=== PATIENT | female | born 1980 | race Caucasian/White ===

== ENCOUNTER 2021-04-07 11:55 | Outpatient (CLI) | payer OTHER | END 2021-04-07 11:56 | disposition home or self-care (01) | LOC: CSHMAMMO 11:55 | PROVIDERS: ATTEND Obstetrics & Gynecology | DX: N63.10 Unspecified lump in the right breast, unspecified quadrant (principal) | CPT/HCPCS: 77066; G0279 ==

== ENCOUNTER 2022-04-19 14:00 | Outpatient (CLI) | payer OTHER | END 2022-04-19 14:01 | disposition home or self-care (01) | LOC: CSHMAMMO 14:00 | PROVIDERS: ATTEND Obstetrics & Gynecology | DX: Z12.31 Encounter for screening mammogram for malignant neoplasm of breast (principal) | CPT/HCPCS: 77063; 77067 ==

== ENCOUNTER 2022-08-17 06:01 | Day surgery (SDC) | payer OTHER ==
[2022-08-14 14:18] VITALS: BMI 26.6
[2022-08-17] MEDS ORDERED: Lidocaine 1% PF 5 ML VIAL ONE (07:15)
[2022-08-17] MEDS ORDERED: PROPOFOL 40 ML ONE (07:15)
[2022-08-17] MEDS ORDERED: PROPOFOL 20 ML ONE (08:03)
== END 2022-08-17 09:01 | disposition home or self-care (01) ==
LOC: CSHSDC 06:01
PROVIDERS: ATTEND Internal Medicine Gastroenterology
PROC: 0DJD8ZZ Inspection of Lower Intestinal Tract, Via Natural or Artificial Opening Endoscopic (ICD-10-PCS; principal; 2022-08-17)
DX: K64.9 Unspecified hemorrhoids (principal); K63.5 Polyp of colon; K62.5 Hemorrhage of anus and rectum; K21.9 Gastro-esophageal reflux disease without esophagitis; E66.9 Obesity, unspecified; F41.9 Anxiety disorder, unspecified; Z68.26 Body mass index [BMI] 26.0-26.9, adult; Z79.899 Other long term (current) drug therapy; Z98.84 Bariatric surgery status
CPT/HCPCS: J2704

== ENCOUNTER 2023-04-24 11:03 | Outpatient (CLI) | payer OTHER | END 2023-04-24 11:04 | disposition home or self-care (01) | LOC: CSHMAMMO 11:03 | PROVIDERS: ATTEND Obstetrics & Gynecology | DX: Z12.31 Encounter for screening mammogram for malignant neoplasm of breast (principal) | CPT/HCPCS: 77063; 77067 ==

== ENCOUNTER 2024-06-19 11:25 | Outpatient (CLI) | payer BC | END 2024-06-19 11:26 | disposition home or self-care (01) | LOC: CSHMAMMO 11:25 | PROVIDERS: ATTEND Obstetrics & Gynecology | DX: Z12.31 Encounter for screening mammogram for malignant neoplasm of breast (principal) | CPT/HCPCS: 77063; 77067 ==